=== PATIENT | male | born 1945 ===

== ENCOUNTER 2016-12-16 10:12 | Outpatient (CLI) | payer MEDICARE ==
--- NOTE | 2016-12-16 13:57 | Cat Scan Report ---
CT ABDOMEN AND PELVIS WITHOUT AND WITH CONTRAST: 12/16/16 10:12:00 CLINICAL: Microscopic hematuria. COMPARISON: None TECHNIQUE: Volumetric acquisition and 1.25 millimeter scan reconstructions without contrast and after the uneventful intravenous injection of 100 cc Omnipaque 300. Consent was obtained prior to the administration of contrast. Oral contrast was not given. FINDINGS: Abdomen: The left kidney measures 10.8 cm in length and the right kidney measures 10.2 cm in length. Normal nondilated renal collecting systems and ureters. A 2 mm nonobstructive left upper pole renal calculus. No right renal calculus. A 3 mm parenchymal calcification in the posterior mid right kidney. Benign cysts of the lower pole the right kidney measure 1.2, 0.3 and 0.4 cm. No solid mass. The adrenal glands are normal. Normal aorta and inferior vena cava. Normal liver, gallbladder and bile ducts. Normal stomach, duodenum, pancreas and spleen. Small bowel is normal. Mild diverticulosis with a few scattered diverticula throughout the colon. The appendix is normal. No mass, lymphadenopathy or ascites. Pelvis: Normal urinary bladder and rectum. The prostate is enlarged and measures approximately 5.9 x 5.4 cm. Benign prostate calcifications. The seminal vesicles are enlarged. Bone windows demonstrate no suspicious bone lesion. IMPRESSION:1. A 2 mm nonobstructive left upper pole renal calculus. 2. Small right renal cysts. 3. No renal mass. 4. Enlarged prostate. 5. Mild diverticulosis but no diverticulitis.
== END 2016-12-16 10:13 | disposition home or self-care (01) ==
LOC: SPVIMAG 10:12
PROVIDERS: ATTEND Urology
DX: N20.0 Calculus of kidney (principal); N28.1 Cyst of kidney, acquired; K57.30 Diverticulosis of large intestine without perforation or abscess without bleeding; N40.0 Benign prostatic hyperplasia without lower urinary tract symptoms; N42.89 Other specified disorders of prostate
CPT/HCPCS: 74178; Q9967